=== PATIENT | male | born 2000 | race Caucasian/White ===

== ENCOUNTER 2023-06-12 09:02 | Emergency (ER) | payer BC ==
[2023-06-12] MEDS: Sodium Chloride 0.9% 10 ML Syringe FLUSH PRN (09:25)
[2023-06-12 09:28] LABS: BASOPHILS PERCENT AUTO 0.4 % (0.0-1.0); EOSINOPHILS PERCENT AUTO 1.2 % (1.0-3.0); HEMATOCRIT 44.1 % (40.0-54.0); HEMOGLOBIN 15.8 g/dL (14.0-18.0); LYMPHOCYTES PERCENT AUTO 22.3 % (20.5-50.1); MEAN CORPUSCULAR HEMOGLOBIN 29.5 pg (27.0-34.0); MEAN CORPUSCULAR HGB CONC 35.8 g/dL (33.0-35.0); MEAN CORPUSCULAR VOLUME 82.3 fL (80-100); MONOCYTES PERCENT AUTO 9.9 % (2-8); NEUTROPHILS PERCENT AUTO 66.2 % (42.2-75.2); PLATELET COUNT,PLT 163 10^3/uL (150-450); RED BLOOD CELL COUNT 5.36 10^6/uL (4.6-6.2); WHITE BLOOD CELL COUNT,WBC 7.4 10^3/uL (5.0-10.0)
[2023-06-12] MEDS: Iopamidol 612 MG/ML 100 ML Bottle IVPUSH ONE (09:29)
[2023-06-12 09:41] LABS: APPEARANCE,URINE CLEAR (CLEAR); BILIRUBIN,URINE NEGATIVE (NEGATIVE); COLOR,URINE YELLOW (YELLOW); GLUCOSE,URINE NEGATIVE (NEGATIVE); KETONES,URINE NEGATIVE (NEGATIVE); LEUKOCYTE ESTERASE,URINE NEGATIVE (NEGATIVE); NITRITE,URINE NEGATIVE (NEGATIVE); OCCULT BLOOD,URINE NEGATIVE (NEGATIVE); PROTEIN,URINE NEGATIVE (NEGATIVE); UROBILINOGEN,URINE 0.2 mg/dL (0.2-1.0)
[2023-06-12] MEDS: Sodium Chloride 0.9% 1,000 ML IV ONE (09:42)
[2023-06-12 09:48] LABS: A/G RATIO 1.4; ALANINE AMINOTRANSFERASE,ALT 49 U/L (16-63); ALBUMIN 4.3 g/dL (3.4-5.0); ALKALINE PHOSPHATASE 96 U/L (46-116); ANION GAP 12.1 mEq/L (7-13); ASPARTATE AMNIOTRANSFERASE,AST 22 U/L (15-37); BILIRUBIN TOTAL 1.6 mg/dL (0.2-1.0); BLOOD UREA NITROGEN,BUN 19 mg/dL (7-18); BUN/CREATININE RATIO 15.8 (No establ ref range); C-REACTIVE PROTEIN < 0.50 ng/dL (<=0.50); CALCIUM 9.1 mg/dL (8.5-10.1); CARBON DIOXIDE,CO2 29 mmol/L (21-32); CHLORIDE,CL 104 mmol/L (98-107); EST CRCL DRUG DOSING (CG) 106.88 mL/min; ESTIMATED GFR 88 mL/min (>=60); GLUCOSE RANDOM 99 mg/dL (70-99); POTASSIUM,K 4.1 mmol/L (3.5-5.1); PROTEIN TOTAL,TP 7.4 g/dL (6.4-8.2); SODIUM,NA 141 mmol/L (136-145)
[2023-06-12 09:51] LABS: LACTIC ACID 0.5 mmol/L (0.4-2.0)
[2023-06-12] MEDS: metroNIDAZOLE/Normal Saline 500 MG in Premix Bag 1 BAG IV ONE (10:18)
[2023-06-12] MEDS: Ciprofloxacin in D5W 400 MG in Premix Bag 1 BAG IV ONE (10:18)
[2023-06-12] MEDS: HYDROmorphone 1 MG/ML Syringe IVPUSH ONE (10:33)
[2023-06-12] MEDS: Ondansetron 4 MG/2 ML SDV IV ONE (10:33)
== END 2023-06-12 10:38 ==
LOC: DL.ED 09:02
DX: K35.80 Unspecified acute appendicitis (principal); Z88.0 Allergy status to penicillin; Z88.1 Allergy status to other antibiotic agents
CPT/HCPCS: 36415; 74177; 80053; 81003; 83605; 85025; 86140; 96361; 96365; 96368; 96375; 99284; 99285-25; J0744; J1170; J1836; J2405; J3490; J7030; Q9967